=== PATIENT | male | born 1990 | race Caucasian/White ===

== ENCOUNTER 2020-03-21 02:47 | Emergency (ER) | payer OTHER ==
[2020-03-21] MEDS ORDERED: Sodium Chloride 0.9% 10 ML Syringe FLUSH PRN (02:55)
[2020-03-21] MEDS ORDERED: Ondansetron 4 MG/2 ML SDV IV ONE (02:55)
[2020-03-21] MEDS ORDERED: Lactated Ringers 1,000 ML IV ONE (02:55)
[2020-03-21 03:50] LABS: ANION GAP 16.1 mmol/L (10-20); CHLORIDE,CL 105 mmol/L (98-107); SODIUM,NA 144 mmol/L (136-145)
[2020-03-21 04:03] LABS: ACETAMINOPHEN 0 ug/ml (10-30)
[2020-03-21] MEDS ORDERED: Lactated Ringers 1,000 ML IV SCH (04:15)
--- NOTE | 2020-03-21 07:58 | EDM.PDOC ---
ED HPI GENERAL MEDICAL PROBLEM - General Chief Complaint: Drug or Alcohol Abuse Stated Complaint: INTOXICATED Time Seen by Provider: 03/21/20 02:52 Source of Information: Reports: Police History Limitations: Reports: Intoxication - History of Present Illness INITIAL COMMENTS - FREE TEXT/NARRATIVE: Patient comes emergency department today by ambulance with concerns of alcohol intoxication. This patient was found in the front seat of his vehicle that was not being driven and he was intoxicated behind the bar. He started vomiting all over the police department during their investigation and showed signs of quite intoxications therefore they contacted the ambulance. Upon arrival little HPI can be obtained because the patient is quite intoxicated. He does admit to drinking alcohol quite heavily tonight denies any recreational drug usage and really does not give any other information upon arrival. - Related Data Allergies Allergy/AdvReac Type Severity Reaction Status Date / Time No Known Allergies Allergy Verified 03/21/20 02:48 Home Meds: Home Meds . [Unable to Verify Home Med List] 03/21/20 [History] Social & Family History - Tobacco Use Smoking Status *Q: Current Status Unknown ED ROS GENERAL - Review of Systems Review Of Systems: Comprehensive ROS is negative, except as noted in HPI. - Physical Exam Exam: See Below Text/Narrative:: Smells highly of alcoholic beverages and is quite intoxicated. Maintaining his own airway. Exam Limited By: Intoxication General Appearance: Alert, WD/WN Eye Exam: Bilateral Eye: EOMI, Normal Inspection, PERRL Ears: Normal External Exam, Normal TMs Nose: Normal Inspection, Normal Mucosa Throat/Mouth: Normal Inspection, Normal Lips, Normal Voice Head Exam: Atraumatic, Normocephalic Neck: Normal Inspection, Supple, Non-Tender, Full Range of Motion Respiratory/Chest: No Respiratory Distress, Lungs Clear, Normal Breath Sounds, Chest Non-Tender Cardiovascular: Normal Peripheral Pulses, Regular Rate, Rhythm GI/Abdominal: Normal Bowel Sounds, Soft, Non-Tender (Male) Exam: Deferred Rectal (Males) Exam: Deferred Neuro Exam (Abbreviated): Alert, CN II-XII Intact, No Motor/Sensory Deficits Back Exam: Normal Inspection Extremities: Normal Inspection, Normal Range of Motion Psychiatric: Anxious Skin Exam: Warm, Dry, Intact, Normal Color Course - Vital Signs Last Recorded V/S: Last Vital Signs Temp 97.8 F 03/21/20 07:52 Pulse 88 03/21/20 07:52 Resp 18 03/21/20 07:52 BP 119/71 03/21/20 07:52 Pulse Ox 95 03/21/20 07:52 - Orders/Labs/Meds Orders: Active Orders 24 hr Category Date Time Status SALICYLATE [REF] Stat Lab 03/21/20 03:23 Received Peripheral IV Insertion Adult [OM.PC] Stat Oth 03/21/20 02:54 Ordered Labs: Laboratory Tests 03/21/20 03/21/20 03/21/20 Range/Units 03:23 03:23 07:53 WBC 8.8 (4.0-10.0) x10^3/uL RBC 4.99 (4.5-6.0) x10^6/uL Hgb 14.6 (14.0-18.0) g/dL Hct 43.0 (40.0-52.0) % MCV 86.2 (78.0-93.0) fL MCH 29.3 (26.0-32.0) pg MCHC 34.0 (32.0-36.0) g/dL RDW Coeff of Sherrie 13.6 (10.0-15.0) % Plt Count 273 (130-400) x10^3/uL Neut % (Auto) 48.5 L (50.0-80.0) % Lymph % (Auto) 41.2 (25.0-50.0) % [place] % (Auto) 6.5 (2.0-11.0) % Eos % (Auto) 3.2 (0.0-4.0) % Baso % (Auto) 0.6 (0.2-1.2) % Sodium 144 (136-145) mmol/L Potassium 3.1 L (3.5-5.1) mmol/L Chloride 105 (98-107) mmol/L Carbon Dioxide 26 (21-32) mmol/L Anion Gap 16.1 (10-20) mmol/L BUN 8 (7-18) mg/dL Creatinine 0.9 (0.70-1.30) mg/dL Est Cr Clr Drug Dosing TNP Estimated GFR (MDRD) > 60 Glucose 118 H (74-106) mg/dL Calcium 8.6 (8.5-10.1) mg/dL Corrected Calcium 8.52 (8.5-10.1) mg/dL Total Bilirubin 0.4 (0.2-1.0) mg/dL AST 19 (15-37) U/L ALT 42 (16-63) U/L Alkaline Phosphatase 63 (46-116) U/L Total Protein 7.6 (6.4-8.2) g/dL Albumin 4.1 (3.4-5.0) g/dL Globulin 3.5 Albumin/Globulin Ratio 1.17 Lipase 283 (73-393) U/L Urine Color Yellow (YELLOW) Urine Appearance Clear (CLEAR) Urine pH 6.0 (5.0-8.0) Ur Specific [place] 1.015 Urine Protein Negative (NEGATIVE) mg/dL Urine Glucose (UA) Negative (NEGATIVE) mg/dL Urine Ketones Negative (NEGATIVE) mg/dL Urine Occult Blood Negative (NEGATIVE) Urine Nitrite Negative (NEGATIVE) Urine Bilirubin Negative (NEGATIVE) Urine Urobilinogen 0.2 (0.2) EU/dL Ur Leukocyte Esterase Negative (NEGATIVE) Urine Opiates Screen (NEAGTIVE) Ur Buprenorphine Scrn (NEGATIVE) Ur Oxycodone Screen (NEGATIVE) Ur EDDP (Meth Metab) (NEGATIVE) Urine Methadone Screen (NEGATIVE) Acetaminophen 0 L (10-30) ug/ml Ur Barbiturates Screen (NEGATIVE) Ur Tricyclics Screen (NEGATIVE) Ur Phencyclidine Scrn (NEGATIVE) Ur Amphetamine Screen (NEGATIVE) U Methamphetamines Scrn (NEGATIVE) Urine MDMA Screen (NEGATIVE) U Benzodiazepines Scrn (NEGATIVE) U Cocaine Metab Screen (NEGATIVE) U Marijuana (THC) Screen (NEGATIVE) Ethyl Alcohol 232 H (0-3) mg/dL 03/21/20 Range/Units 07:53 WBC (4.0-10.0) x10^3/uL RBC (4.5-6.0) x10^6/uL Hgb (14.0-18.0) g/dL Hct (40.0-52.0) % MCV (78.0-93.0) fL MCH (26.0-32.0) pg MCHC (32.0-36.0) g/dL RDW Coeff of Sherrie (10.0-15.0) % Plt Count (130-400) x10^3/uL Neut % (Auto) (50.0-80.0) % Lymph % (Auto) (25.0-50.0) % [place] % (Auto) (2.0-11.0) % Eos % (Auto) (0.0-4.0) % Baso % (Auto) (0.2-1.2) % Sodium (136-145) mmol/L Potassium (3.5-5.1) mmol/L Chloride (98-107) mmol/L Carbon Dioxide (21-32) mmol/L Anion Gap (10-20) mmol/L BUN (7-18) mg/dL Creatinine (0.70-1.30) mg/dL Est Cr Clr Drug Dosing Estimated GFR (MDRD) Glucose (74-106) mg/dL Calcium (8.5-10.1) mg/dL Corrected Calcium (8.5-10.1) mg/dL Total Bilirubin (0.2-1.0) mg/dL AST (15-37) U/L ALT (16-63) U/L Alkaline Phosphatase (46-116) U/L Total Protein (6.4-8.2) g/dL Albumin (3.4-5.0) g/dL Globulin Albumin/Globulin Ratio Lipase (73-393) U/L Urine Color (YELLOW) Urine Appearance (CLEAR) Urine pH (5.0-8.0) Ur Specific [place] Urine Protein (NEGATIVE) mg/dL Urine Glucose (UA) (NEGATIVE) mg/dL Urine Ketones (NEGATIVE) mg/dL Urine Occult Blood (NEGATIVE) Urine Nitrite (NEGATIVE) Urine Bilirubin (NEGATIVE) Urine Urobilinogen (0.2) EU/dL Ur Leukocyte Esterase (NEGATIVE) Urine Opiates Screen Negative (NEAGTIVE) Ur Buprenorphine Scrn Negative (NEGATIVE) Ur Oxycodone Screen Negative (NEGATIVE) Ur EDDP (Meth Metab) Negative (NEGATIVE) Urine Methadone Screen Negative (NEGATIVE) Acetaminophen (10-30) ug/ml Ur Barbiturates Screen Negative (NEGATIVE) Ur Tricyclics Screen Negative (NEGATIVE) Ur Phencyclidine Scrn Negative (NEGATIVE) Ur Amphetamine Screen Positive H (NEGATIVE) U Methamphetamines Scrn Negative (NEGATIVE) Urine MDMA Screen Negative (NEGATIVE) U Benzodiazepines Scrn Negative (NEGATIVE) U Cocaine Metab Screen Negative (NEGATIVE) U Marijuana (THC) Screen Negative (NEGATIVE) Ethyl Alcohol (0-3) mg/dL Meds: Medications Discontinued Medications Generic Name Dose Route Start Last Admin Trade Name Freq PRN Reason Stop Dose Admin Lactated Ringer's 1,000 mls @ 999 mls/hr 03/21/20 02:55 03/21/20 03:25 Ringers, Lactated IV 03/21/20 03:55 999 mls/hr ONETIME ONE Administration Lactated Ringer's 1,000 mls @ 250 mls/hr 03/21/20 04:15 03/21/20 04:15 Ringers, Lactated IV 250 mls/hr ASDIRECTED JOSE Administration Ondansetron HCl 4 mg 03/21/20 02:55 03/21/20 03:26 Zofran IV 03/21/20 02:56 4 mg ONETIME ONE Administration Sodium Chloride 10 ml 03/21/20 02:55 03/21/20 04:21 Saline Flush FLUSH 10 ml ASDIRECTED PRN Administration Keep Vein Open - Re-Assessments/Exams Free Text/Narrative Re-Assessment/Exam: 03/21/20 The patient was given a liter of LR and 4mg Zofran. He rested over the next few hours without any concerns. He awoke and doesn't remember the details of the night. He is alert appropriate and without complaints and upset that he got a DUI from the front office administrator. He would like to go home. Discharge instruction as below were explained to the patient and he is comfortable with the plan. Departure - Departure Time of Disposition: 07:56 Disposition: Home, Self-Care 01 Clinical Impression: Acute alcoholic intoxication Qualifiers: Complication of substance-induced condition: uncomplicated Qualified Code(s): F10.920 - Alcohol use, unspecified with intoxication, uncomplicated - Discharge Information Instructions: Binge-Drinking Information, Adult, Alcohol Intoxication, [id number] Referrals: PCP,None [Primary Care Provider] - Forms: ED Department Discharge Additional Instructions: Home rest today. Plenty of fluids especially electrolyte containing materials such as Gatorade and or Powerade. No alcohol Return to the ED if new or worsening symptoms. Follow up with PCP if any concerns. Sepsis Event Note (ED) - Evaluation Sepsis Screening Result: No Definite Risk - Focused Exam Vital Signs: Vital Signs Temp Pulse Resp BP Pulse Ox 03/21/20 07:52 97.8 F 88 18 119/71 95 03/21/20 06:28 97.2 F 67 16 97/56 L 97 - My Orders Last 24 Hours: My Active Orders 03/21/20 02:54 Peripheral IV Insertion Adult [OM.PC] Stat 03/21/20 03:23 SALICYLATE [REF] Stat - Assessment/Plan Last 24 Hours: My Active Orders 03/21/20 02:54 Peripheral IV Insertion Adult [OM.PC] Stat 03/21/20 03:23 SALICYLATE [REF] Stat
[2020-03-21 08:03] LABS: BARBITURATE SCREEN,URINE NEGATIVE (NEGATIVE); BENZODIAZEPINES SCREEN,URINE NEGATIVE (NEGATIVE); EDDP,URINE SCREEN NEGATIVE (NEGATIVE); METHAMPHETAMINE SCREEN, URINE NEGATIVE (NEGATIVE); TCA SCREEN,URINE NEGATIVE (NEGATIVE); THC SCREEN,URINE 50 NG/ML NEGATIVE (NEGATIVE)
== END 2020-03-21 08:10 | disposition home or self-care (01) ==
LOC: VM.ED 02:47 → EDBD 02:47 → VM.ED 08:10
DX: F10.120 Alcohol abuse with intoxication, uncomplicated (principal); Y90.7 Blood alcohol level of 200-239 mg/100 ml
CPT/HCPCS: 80053; 80305; 80307; 81003; 83690; 85025; 96361; 96374; 99284; J2405; J7120; 99283